=== PATIENT | male | born 1950 | race Caucasian/White ===

== ENCOUNTER 2018-12-18 08:10 | Day surgery (SDC) | payer MEDICARE, BC ==
[~2018-12-18 08:10] MED LIST: Dextrose 5%-0.45% NaCl 1,000 ML IV SCH
[2018-12-18] MEDS ORDERED: Midazolam 1 MG/ML 2 ML SDV IV ONE ×5 (08:11→09:38)
[2018-12-18] MEDS ORDERED: Benzocaine 20% Topical Spray UD MUCMEM ONE (09:05)
[2018-12-18] MEDS ORDERED: Midazolam 1 MG/ML 2 ML SDV ONE (09:05)
--- NOTE | 2018-12-18 11:15 | OR ---
DATE: 12/18/2018 PREOPERATIVE DIAGNOSIS: Dysphagia. POSTOPERATIVE DIAGNOSIS: Dysphagia. PROCEDURES: EGD with photographs and biopsy of the EG junction. ANESTHESIA: Conscious sedation with IV Versed. SPECIMEN: Distal esophageal biopsy. FINDINGS: Small 2 cm hiatal hernia with minimal soft esophagitis. Gastric and duodenal anatomy are normal. RECOMMENDATION: This patient's dysphagia is most likely caused by some intermittent obstruction in the hiatal hernia. There is no stricture or masses noted and the rest of the esophagus is clear. INDICATION FOR PROCEDURE: This 68-year-old male has dysphagia. PROCEDURE IN DETAIL: After adequate preparation, a gastroscope was inserted into the esophagus, this was passed down to the distal esophagus. It shows a 2 cm hiatal hernia, a photograph of this was taken. He has a few small streaks of esophagitis, nothing that is very significant though. The scope was advanced into the stomach. Both forward and retroflexed views were done and are normal. The scope was advanced into the duodenum. That examination is also normal. On withdrawal of the scope, a biopsy of the EG junction was taken. Air was suctioned from the stomach, and the scope removed. [facility] /[id number]
[2018-12-18 11:38] VITALS: BP 140/81
== END 2018-12-18 12:05 | disposition home or self-care (01) ==
LOC: DL.ENDO 08:10
PROVIDERS: ATTEND Surgery
DX: K20.9 Esophagitis, unspecified (principal); K44.9 Diaphragmatic hernia without obstruction or gangrene; K21.9 Gastro-esophageal reflux disease without esophagitis
CPT/HCPCS: 43239; 88305; 93005; J2250; J7042

== ENCOUNTER 2025-02-28 13:54 | Emergency (ER) | payer MEDICARE, OTHER ==
[2025-02-28] MEDS: Iopamidol 755 Mg/ML 100 ML Bottle IVPUSH ONE (13:51)
[2025-02-28 14:03] LABS: BASOPHILS PERCENT AUTO 0.6 % (0.0-1.0); EOSINOPHILS PERCENT AUTO 4.6 % (1.0-3.0); HEMOGLOBIN 13.3 g/dL (14.0-18.0); LYMPHOCYTES PERCENT AUTO 23.4 % (20.5-50.1); MEAN CORPUSCULAR HEMOGLOBIN 32.3 pg (27.0-34.0); MEAN CORPUSCULAR HGB CONC 34.1 g/dL (33.0-35.0); MEAN CORPUSCULAR VOLUME 94.7 fL (80-100); MONOCYTES PERCENT AUTO 9.1 % (2-8); NEUTROPHILS PERCENT AUTO 62.3 % (42.2-75.2); PLATELET COUNT,PLT 203 10^3/uL (150-450); RED BLOOD CELL COUNT 4.12 10^6/uL (4.6-6.2); WHITE BLOOD CELL COUNT,WBC 7.8 10^3/uL (5.0-10.0)
[2025-02-28 14:17] LABS: PROTHROMBIN TIME 10.7 SEC (9.0-12.0)
[2025-02-28 14:23] LABS: A/G RATIO 1.1; ALANINE AMINOTRANSFERASE,ALT 23 U/L (16-63); ALKALINE PHOSPHATASE 44 U/L (46-116); ASPARTATE AMNIOTRANSFERASE,AST 19 U/L (15-37); BILIRUBIN TOTAL 0.7 mg/dL (0.2-1.0); BLOOD UREA NITROGEN,BUN 32 mg/dL (7-18); BUN/CREATININE RATIO 16.6 (No establ ref range); C-REACTIVE PROTEIN < 0.50 ng/dL (<=0.50); CALCIUM 9.7 mg/dL (8.5-10.1); CARBON DIOXIDE,CO2 26 mmol/L (21-32); CHLORIDE,CL 104 mmol/L (98-107); CREATININE 1.93 mg/dL (0.70-1.30); ESTIMATED GFR 35 mL/min (>=60); GLUCOSE RANDOM 244 mg/dL (70-99); MAGNESIUM 1.8 mg/dL (1.8-2.4); PROTEIN TOTAL,TP 7.7 g/dL (6.4-8.2); SODIUM,NA 139 mmol/L (136-145)
[2025-02-28] MEDS: Clopidogrel 75 MG Tab PO ONE (15:17)
[2025-02-28] MEDS: Aspirin 81 MG Tab.Chew PO ONE (15:17)
[2025-02-28 15:55] VITALS: BP 182/105; PULSE 62
== END 2025-02-28 15:49 | disposition home or self-care (01) ==
LOC: DL.ED 13:54
DX: I63.9 Cerebral infarction, unspecified (principal); I10 Essential (primary) hypertension; E11.9 Type 2 diabetes mellitus without complications; E78.00 Pure hypercholesterolemia, unspecified; M19.90 Unspecified osteoarthritis, unspecified site; Z79.899 Other long term (current) drug therapy; Z79.82 Long term (current) use of aspirin; Z79.84 Long term (current) use of oral hypoglycemic drugs
CPT/HCPCS: 36415; 70496; 70498; 80053; 82947; 83735; 85025; 85610; 86140; 93005; 93010; 99285; A9270; Q9967

== ENCOUNTER 2025-05-24 09:24 | Emergency (ER) | payer MEDICARE, OTHER ==
[2025-05-24 09:55] LABS: BASOPHILS PERCENT AUTO 0.8 % (0.0-1.0); EOSINOPHILS PERCENT AUTO 6.2 % (1.0-3.0); HEMATOCRIT 36.7 % (40.0-54.0); HEMOGLOBIN 12.6 g/dL (14.0-18.0); MEAN CORPUSCULAR HEMOGLOBIN 33.5 pg (27.0-34.0); MEAN CORPUSCULAR HGB CONC 34.3 g/dL (33.0-35.0); MEAN CORPUSCULAR VOLUME 97.6 fL (80-100); MONOCYTES PERCENT AUTO 8.1 % (2-8); NEUTROPHILS PERCENT AUTO 63.9 % (42.2-75.2); PLATELET COUNT,PLT 177 10^3/uL (150-450); RED BLOOD CELL COUNT 3.76 10^6/uL (4.6-6.2); WHITE BLOOD CELL COUNT,WBC 8.4 10^3/uL (5.0-10.0)
[2025-05-24 10:15] LABS: INR 0.9 (0.9-1.2); PROTHROMBIN TIME 9.9 SEC (9.0-12.0)
[2025-05-24 10:16] LABS: A/G RATIO 1.1; ALBUMIN 3.6 g/dL (3.4-5.0); ANION GAP 8.2 mEq/L (7-13); BUN/CREATININE RATIO 18.1 (No establ ref range); CALCIUM 9.4 mg/dL (8.5-10.1); CREATININE 1.93 mg/dL (0.70-1.30); EST CRCL DRUG DOSING (CG) 34.68 mL/min; POTASSIUM,K 4.2 mmol/L (3.5-5.1); PROTEIN TOTAL,TP 6.9 g/dL (6.4-8.2)
[2025-05-24 11:48] VITALS: BP 123/72; PULSE 56
== END 2025-05-24 12:19 | disposition home or self-care (01) ==
LOC: DL.ED 09:24
DX: R07.9 Chest pain, unspecified (principal); I10 Essential (primary) hypertension; E78.00 Pure hypercholesterolemia, unspecified; E11.9 Type 2 diabetes mellitus without complications; M19.90 Unspecified osteoarthritis, unspecified site; Z79.84 Long term (current) use of oral hypoglycemic drugs; Z79.82 Long term (current) use of aspirin; Z79.899 Other long term (current) drug therapy
CPT/HCPCS: 36415; 71045; 80053; 84484; 85025; 85610; 93005; 93010; 99284; 99285